=== PATIENT | male | born 1990 | race American Indian/Alaskan Native ===

== ENCOUNTER 2018-04-26 08:32 | Emergency (ER) | payer SELFPAY ==
[2018-04-26 08:36] VITALS: BP 144/104; PULSE 100; RESP 20; TEMP 98.7; O2SAT 99
[2018-04-26 09:15] LABS: SQUAMOUS EPITHIAL < 1 /hpf (0-5); URINE BACTERIA OCC (<OCC); URINE BILIRUBIN NEGATIVE (NEGATIVE); URINE BLOOD NEGATIVE (NEGATIVE); URINE CLARITY Hazy (Clear); URINE COLOR Amber (YELLOW); URINE GLUCOSE (UA) NORMAL (Normal); URINE LEUKOCYTE ESTERASE 3+ Leu/uL (Negative); URINE PROTEIN 1+ mg/dL (NEGATIVE)
[2018-04-26] MEDS ORDERED: cefTRIAXone (Rocephin) 250 mg Inj IM STA (09:23)
--- NOTE | 2018-04-26 09:42 | C.PDOC ---
History Of Present Illness 28 y/o male pt presents to the ER c/o penile discharge. Associated sx includes discomfort when urinating. Pt reports he is sexually active. Pt denies fever and chills. Chief Complaint (Nursing): Male Genitourinary History Per: Patient History/Exam Limitations: no limitations Onset/Duration Of Symptoms: Days Current Symptoms Are (Timing): Still Present Past Medical History Reviewed: Historical Data, Nursing Documentation, Vital Signs Vital Signs: Last Vital Signs Temp 98.7 F 04/26/18 08:34 Pulse 100 H 04/26/18 08:34 Resp 20 04/26/18 08:34 BP 144/104 H 04/26/18 08:34 Pulse Ox 99 04/26/18 08:34 Family History: States: Unknown Family Hx - Social History Hx Tobacco Use: Yes (light smoker) Hx Alcohol Use: No Hx Substance Use: Yes (marijuana) - Immunization History Hx Influenza Vaccination: No Review Of Systems Except As Marked, All Systems Reviewed And Found Negative. Genitourinary: Positive for: Penile Discharge Physical Exam - Physical Exam Appears: Non-toxic, No Acute Distress Skin: Normal Color, Warm, Dry Head: Atraumatic, Normacephalic Eye(s): bilateral: Normal Inspection, PERRL, EOMI Nose: Normal Oral Mucosa: Moist Chest: Symmetrical Cardiovascular: Rhythm Regular, No Murmur Respiratory: Normal Breath Sounds, No Rales, No Rhonchi, No Wheezing Gastrointestinal/Abdominal: Normal Exam, Soft, No Tenderness Male Genital: No Testicular Tenderness, No Testicular Swelling, Other (discharge from penis; no lesion, both testes descended, no tenderness ) Extremity: Normal ROM (x4) Neurological/Psych: Oriented x3, Normal Speech ED Course And Treatment - Laboratory Results Lab Results: Urine Color Simona (YELLOW) 04/26/18 09:00 Urine Clarity Hazy (Clear) 04/26/18 09:00 Urine pH 5.0 (5.0-8.0) 04/26/18 09:00 Ur Specific Tyro 1.033 (1.003-1.030) H 04/26/18 09:00 Urine Protein 1+ mg/dL (NEGATIVE) H 04/26/18 09:00 Urine Glucose (UA) Normal mg/dL (Normal) 04/26/18 09:00 Urine Ketones Trace mg/dL (NEGATIVE) 04/26/18 09:00 Urine Blood Negative (NEGATIVE) 04/26/18 09:00 Urine Nitrate Negative (NEGATIVE) 04/26/18 09:00 Urine Bilirubin Negative (NEGATIVE) 04/26/18 09:00 Urine Urobilinogen 4.0 mg/dL (0.2-1.0) 04/26/18 09:00 Ur Leukocyte Esterase 3+ Dalton/uL (Negative) H 04/26/18 09:00 Urine WBC (Auto) 281 /hpf (0-5) H 04/26/18 09:00 Urine RBC (Auto) 8 /hpf (0-3) H 04/26/18 09:00 Ur Squamous Epith Cells < 1 /hpf (0-5) 04/26/18 09:00 Urine Bacteria Occ (<OCC) H 04/26/18 09:00 O2 Sat by Pulse Oximetry: 99 (RA) Pulse Ox Interpretation: Normal Medical Decision Making Medical Decision Making: Assessment: urethritis Plans: -- chlamydia/GC -- Urine culture -- UA -- Rocephin -- Zithromax Disposition Counseled Patient/Family Regarding: Studies Performed, Diagnosis, Need For Followup - Disposition Referrals: [facility] [Outside] Disposition: HOME/ ROUTINE Disposition Time: 09:39 Condition: STABLE Additional Instructions: follow up with your doctor within 2 days call to make an appointment no sex for one week have your partner treated return to ER if symptoms worsens or progress Instructions: Urethritis Forms: [facility] (Spanish), General Discharge Instructions - Clinical Impression Clinical Impression: STD exposure - Scribe Statement The provider has reviewed the documentation as recorded by the Anup Salamanca Do Provider Attestation: All medical record entries made by the [place] were at my direction and personally dictated by me. I have reviewed the chart and agree that the record accurately reflects my personal performance of the history, physical exam, medical decision making, and the department course for this patient. I have also personally directed, reviewed, and agree with the discharge instructions and disposition.
[2018-04-26] MEDS ORDERED: cefTRIAXone 250 MG in Lidocaine Hydrochloride 1% 0.9 ML IM ONE (09:45)
== END 2018-04-26 10:02 | disposition home or self-care (01) ==
LOC: C.ER 08:32
DX: Z20.2 Contact with and (suspected) exposure to infections with a predominantly sexual mode of transmission (principal)
CPT/HCPCS: 81001; 87086; 87491; 87591; 96372; 99284; J0696